=== PATIENT | female | born 1990 | race Caucasian/White ===

== ENCOUNTER 2023-09-08 08:09 | Outpatient (CLI) | payer BC, SELFPAY ==
--- NOTE | 2023-09-08 08:15 | CRLHL7_ITS ---
For Patients: As a result of the Century Cures Act, medical imaging exams and procedure reports are released immediately into your electronic medical record. You may view this report before your referring provider. If you have questions, please contact your health care provider. INDICATION: Irregular menses. Question PCOS. TECHNIQUE: Transabdominal and transvaginal scanning was performed. Transvaginal scanning was performed to optimally evaluate the endometrium and adnexa. Ovarian blood flow was evaluated with color-flow and pulsed Doppler. COMPARISON: None. FINDINGS: The uterus is normal in size and shape. The uterus measures 7.1 x 2.6 x 3.4 cm. No uterine mass is evident. The endometrial stripe is normal in thickness at 7 mm. Multiple right ovarian follicles are noted. The right ovary measures 3.9 x 2.4 x 2.3 cm and left 3.3 x 2.9 x 1.8 cm. Ovarian blood flow is demonstrated with color-flow and pulsed Doppler. No adnexal mass is evident. No free fluid is demonstrated. IMPRESSION: Negative pelvic ultrasound. Dictated by Frank Camacho MD @ 09/08/2023 2:56:25 PM (Electronically Signed)
== END 2023-09-08 08:10 | disposition home or self-care (01) ==
LOC: US 08:11
PROVIDERS: PCP Physician Assistant Medical; Visit Provider Physician Assistant
DX: N92.6 Irregular menstruation, unspecified (principal); N83.201 Unspecified ovarian cyst, right side; Z31.69 Encounter for other general counseling and advice on procreation
CPT/HCPCS: 76830; 76856

== ENCOUNTER 2023-09-27 07:34 | Outpatient (CLI) | payer BC, SELFPAY | END 2023-09-27 07:35 | disposition home or self-care (01) | LOC: NFLDREF 12:07 | PROVIDERS: PCP Physician Assistant Medical; Referring Provider Physician Assistant Medical; Visit Provider Physician Assistant | DX: Z31.9 Encounter for procreative management, unspecified (principal) | CPT/HCPCS: 80061; 82670; 83001; 83002; 83498; 84146; 84270; 84402; 84403; 84443 ==

== ENCOUNTER 2023-10-06 10:01 | Outpatient (CLI) | payer BC, SELFPAY ==
--- NOTE | 2023-10-06 09:15 | CRLHL7_ITS ---
For Patients: As a result of the Century Cures Act, medical imaging exams and procedure reports are released immediately into your electronic medical record. You may view this report before your referring provider. If you have questions, please contact your health care provider. Indication: INFERTILITY Technique: Routine hysterosalpingogram performed. Fluoroscopic time 40 seconds. IMPRESSION: Normal endometrial canal without filling defect. Normal fallopian tubes. Normal spillage of contrast into the peritoneal cavity. Normal exam. Dictated by Donavan Griffith MD @ 10/06/2023 12:20:58 PM (Electronically Signed)
--- NOTE | 2023-10-06 16:20 | P.GYNPRC_ITS ---
Procedure Note Date of procedure: 10/06/23 Procedure Description: PREPROCEDURE DIAGNOSIS: Primary infertility. POSTPROCEDURE DIAGNOSIS: 1. Primary infertility. 2. Patent fallopian tubes bilaterally with normal contours of endometrial cavity. NAME OF PROCEDURE: Hysterosalpingogram. ANESTHESIA: None. COMPLICATIONS: None. PROCEDURE: After obtaining consent, the patient was placed in the dorsal lithotomy position on the x-ray table. An open-sided bivalve speculum was introduced into the vagina and the cervix easily visualized. The cervix and vagina were then prepped with Betadine. The anterior lip of the cervix was grasped with a single-tooth tenaculum for traction. A balloon tipped double- lumen catheter was then gently inserted through the cervical opening into the uterine cavity to the level of the fundus. The balloon was insufflated with 3 mL of air. The tenaculum and speculum were removed. The patient was repositioned in the supine position, covered, and the radiologist was called to the room. A hysterosalpingogram was then performed. A total of 3 cc of Optiray 300 water soluble contrast dye was injected through the double-lumen catheter under moderate pressure. There was immediate fill of the uterine cavity to the cornua and immediately fill of both fallopian tubes and spillage into peritoneal cavity on either side. The balloon was deflated and the contours of endometrial cavity appeared normal. The catheter was removed. The patient tolerated the procedure well, though she did have moderate cramping discomfort during and just after the procedure. She was discharged to home in stable condition with instructions to [facility].
== END 2023-10-06 10:02 | disposition home or self-care (01) ==
LOC: RAD 10:01
PROVIDERS: PCP Physician Assistant Medical; Visit Provider Obstetrics & Gynecology
DX: N97.9 Female infertility, unspecified (principal); Z31.9 Encounter for procreative management, unspecified
CPT/HCPCS: 58340; 74740; A4649; Q9967

== ENCOUNTER 2023-10-16 15:08 | Outpatient (REF) | payer BC, SELFPAY | END 2023-10-16 15:09 | disposition home or self-care (01) | LOC: NFLDREF 15:08 | PROVIDERS: PCP Physician Assistant Medical; Referring Provider Physician Assistant Medical; Visit Provider Physician Assistant | DX: Z31.9 Encounter for procreative management, unspecified (principal) | CPT/HCPCS: 84144 ==

== ENCOUNTER 2024-02-20 13:55 | Outpatient (CLI) | payer BC, SELFPAY | END 2024-02-20 13:56 | disposition home or self-care (01) | LOC: NFLDREF 02-25 05:39 | PROVIDERS: PCP Physician Assistant Medical; Referring Provider Physician Assistant Medical; Visit Provider Physician Assistant | DX: N97.0 Female infertility associated with anovulation (principal) | CPT/HCPCS: 84144 ==

== ENCOUNTER 2024-03-25 15:09 | Outpatient (CLI) | payer BC, SELFPAY | END 2024-03-25 15:10 | disposition home or self-care (01) | LOC: NFLDREF 03-31 06:59 | PROVIDERS: PCP Physician Assistant Medical; Referring Provider Physician Assistant Medical; Visit Provider Physician Assistant | DX: N97.8 Female infertility of other origin (principal); Z31.81 Encounter for male factor infertility in female patient | CPT/HCPCS: 84144 ==

== ENCOUNTER 2024-05-20 11:27 | Outpatient (CLI) | payer BC, SELFPAY | END 2024-05-20 11:28 | disposition home or self-care (01) | LOC: NFLDREF 05-26 11:19 | PROVIDERS: PCP Physician Assistant Medical; Referring Provider Physician Assistant Medical; Visit Provider Physician Assistant | DX: N97.0 Female infertility associated with anovulation (principal) | CPT/HCPCS: 84144 ==